=== PATIENT | male | born 1985 | race Caucasian/White ===

== ENCOUNTER 2021-04-23 14:10 | Inpatient (IN) | payer BC ==
[2021-04-23 17:29] VITALS: BMI 25.2
[2021-04-23] MEDS ORDERED: BISMUTH SUBSALICYLATE 524 MG/30 ML PO PRN (18:16)
[2021-04-23] MEDS ORDERED: MAGNESIUM HYDROX 2400MG/30ML ORAL SUSPENSION 30 ML CUP PO PRN (18:16)
[2021-04-23] MEDS ORDERED: NICOTINE POLACRILEX 2 MG GUM BUC PRN (18:16)
[2021-04-23] MEDS ORDERED: methaDONE HCL 10 MG TABLET (FOR DETOX USE ONLY) PO ONE (18:16)
[2021-04-23] MEDS ORDERED: ACETAMINOPHEN 325 MG TABLET (FP) PO PRN ×2 (18:16)
[2021-04-23] MEDS ORDERED: MAGNESIUM CITRATE 300 ML BOTTLE PO PRN (18:16)
[2021-04-23] MEDS ORDERED: LORazepam 1 MG TABLET PO PRN (18:16)
[2021-04-23] MEDS ORDERED: ONDANSETRON *ODT* 4 MG TABLET SL PRN (18:16)
[2021-04-23] MEDS ORDERED: MAG HYDROX/AL HYDROX/SIMETH 30 ML UNIT-DOSE CUP PO PRN (18:16)
[2021-04-23] MEDS ORDERED: MENTHOL/PHENOL 1 EACH UD MM PRN (18:16)
[2021-04-23] MEDS ORDERED: cloNIDine HCL 0.1 MG TABLET PO PRN (18:16)
[2021-04-23] MEDS ORDERED: clonazePAM 0.5 MG ODT TABLETS SL PRN (18:16)
[2021-04-23] MEDS: PRENATAL VITAMINS W/ FOLIC ACID TABLET (FP) PO SCH (19:25)
[2021-04-23] MEDS: NICOTINE 21 MG/24 HOURS TOPICAL PATCH TD SCH (19:25)
[2021-04-23] MEDS: THIAMINE HCL 100 MG TABLET (FP) PO SCH (22:04)
[2021-04-23] MEDS: hydrOXYzine PAMOATE 25 MG CAPSULE (FP) PO SCH (22:05)
[2021-04-23] MEDS: MELATONIN 5 MG TABLETS PO SCH (22:05)
[2021-04-23] MEDS: LORazepam 2 MG TABLET PO SCH (22:08)
[2021-04-23] MEDS: NICOTINE 10 MG CARTRIDGE (INHALER) IH PRN (22:10)
[2021-04-24] MEDS: LORazepam 2 MG TABLET PO SCH ×4 (07:25→22:14)
[2021-04-24] MEDS: hydrOXYzine PAMOATE 25 MG CAPSULE (FP) PO SCH ×5 (07:25→22:14)
[2021-04-24] MEDS ORDERED: methaDONE HCL 10 MG TABLET (FOR DETOX USE ONLY) ONE (09:06)
[2021-04-24] MEDS: PRENATAL VITAMINS W/ FOLIC ACID TABLET (FP) PO SCH (10:04)
[2021-04-24] MEDS: NICOTINE 21 MG/24 HOURS TOPICAL PATCH TD SCH (10:06)
[2021-04-24] MEDS: NICOTINE 10 MG CARTRIDGE (INHALER) IH PRN (10:10)
[2021-04-24 11:06] LABS: HEMATOCRIT 35.6 % (35.4-49); HEMOGLOBIN 12.2 GM/dL (11.7-16.9); MCH 30.2 pg (25.7-33.7); MCHC 34.4 g/dl (32.0-35.9); MEAN PLT VOLUME 8.5 fl (7.5-11.1); PLATELET COUNT 172 10^3/uL (134-434); RBC 4.04 M/mm3 (4.00-5.60); WHITE BLOOD COUNT 3.8 K/mm3 (4.0-10.0)
[2021-04-24 11:23] LABS: ALBUMIN 3.4 g/dl (3.4-5.0)
[2021-04-24 11:24] LABS: CALCIUM 9.4 mg/dL (8.5-10.1)
[2021-04-24 11:25] LABS: BLOOD UREA NITROGEN 11.9 mg/dL (7-18)
[2021-04-24 11:27] LABS: CREATININE 0.7 mg/dL (0.55-1.3)
[2021-04-24 11:28] LABS: BILIRUBIN,TOTAL 0.6 mg/dL (0.2-1)
[2021-04-24 11:31] LABS: TOT PROT 6.6 g/dl (6.4-8.2)
[2021-04-24] MEDS: QUEtiapine FUMARATE 100 MG TABLET (FP) PO SCH (22:14)
[2021-04-24] MEDS: MELATONIN 5 MG TABLETS PO SCH (23:01)
[2021-04-24] MEDS: THIAMINE HCL 100 MG TABLET (FP) PO SCH (23:01)
[2021-04-25] MEDS: hydrOXYzine PAMOATE 25 MG CAPSULE (FP) PO SCH ×5 (05:47→22:06)
[2021-04-25] MEDS: LORazepam 1 MG TABLET PO SCH ×4 (05:48→22:06)
[2021-04-25] MEDS: NICOTINE 10 MG CARTRIDGE (INHALER) IH PRN (05:49)
[2021-04-25] MEDS ORDERED: methaDONE HCL 10 MG TABLET (FOR DETOX USE ONLY) PO ONE (10:00)
[2021-04-25] MEDS: FLUoxetine HCL 20 MG CAPSULE PO SCH (10:33)
[2021-04-25] MEDS: PRENATAL VITAMINS W/ FOLIC ACID TABLET (FP) PO SCH (10:33)
[2021-04-25] MEDS: METHOCARBAMOL 500 MG TABLET PO PRN ×2 (10:33→22:08)
[2021-04-25] MEDS: NICOTINE 21 MG/24 HOURS TOPICAL PATCH TD SCH (10:34)
[2021-04-25] MEDS: IBUPROFEN 400 MG TABLET (FP) PO PRN (18:34)
[2021-04-25] MEDS: MELATONIN 5 MG TABLETS PO SCH (22:06)
[2021-04-25] MEDS: THIAMINE HCL 100 MG TABLET (FP) PO SCH (22:06)
[2021-04-25] MEDS: QUEtiapine FUMARATE 100 MG TABLET (FP) PO SCH (22:06)
[2021-04-26] MEDS ORDERED: LORazepam 0.5 MG TABLET PO PRN
[2021-04-26] MEDS: IBUPROFEN 400 MG TABLET (FP) PO PRN ×2 (05:16→18:17)
[2021-04-26] MEDS: hydrOXYzine PAMOATE 25 MG CAPSULE (FP) PO SCH ×2 (05:16→09:40)
[2021-04-26] MEDS: LORazepam 0.5 MG TABLET PO SCH ×4 (05:16→23:02)
[2021-04-26] MEDS ORDERED: methaDONE HCL 10 MG TABLET (FOR DETOX USE ONLY) ONE (08:59)
[2021-04-26] MEDS: METHOCARBAMOL 500 MG TABLET PO PRN ×2 (09:40→22:23)
[2021-04-26] MEDS: PRENATAL VITAMINS W/ FOLIC ACID TABLET (FP) PO SCH (09:40)
[2021-04-26] MEDS: FLUoxetine HCL 20 MG CAPSULE PO SCH (09:40)
[2021-04-26] MEDS: NICOTINE 21 MG/24 HOURS TOPICAL PATCH TD SCH (09:41)
[2021-04-26] MEDS: NICOTINE 10 MG CARTRIDGE (INHALER) IH PRN (10:32)
[2021-04-26] MEDS ORDERED: P-EPHED 60MG/TRIPROLIDI 2.5MG TABLET PO PRN (10:38)
[2021-04-26] MEDS ORDERED: SODIUM CHLORIDE NASAL SPRAY 44 ML BOTTLE NS PRN (10:38)
[2021-04-26] MEDS: hydrOXYzine PAMOATE 25 MG CAPSULE (FP) PO PRN (18:17)
[2021-04-26] MEDS: MELATONIN 5 MG TABLETS PO SCH (22:23)
[2021-04-26] MEDS: QUEtiapine FUMARATE 100 MG TABLET (FP) PO SCH (22:23)
[2021-04-26] MEDS: THIAMINE HCL 100 MG TABLET (FP) PO SCH (22:24)
[2021-04-27] MEDS: hydrOXYzine PAMOATE 25 MG CAPSULE (FP) PO PRN (03:15)
[2021-04-27] MEDS: IBUPROFEN 400 MG TABLET (FP) PO PRN ×2 (03:16→10:39)
[2021-04-27] MEDS ORDERED: LORazepam 0.5 MG TABLET PO ONE (05:00)
[2021-04-27] MEDS ORDERED: methaDONE HCL 10 MG TABLET (FOR DETOX USE ONLY) PO ONE (10:00)
[2021-04-27] MEDS: FLUoxetine HCL 20 MG CAPSULE PO SCH (10:34)
[2021-04-27] MEDS: PRENATAL VITAMINS W/ FOLIC ACID TABLET (FP) PO SCH (10:34)
[2021-04-27] MEDS: NICOTINE 21 MG/24 HOURS TOPICAL PATCH TD SCH (10:35)
[2021-04-27] MEDS: METHOCARBAMOL 500 MG TABLET PO PRN (10:39)
[2021-04-27 14:25] VITALS: BP 125/79; PULSE 92; TEMP 97.1
== END 2021-04-27 13:50 | disposition home or self-care (01) | DRG 773 ==
LOC: YASAS 14:10 → Y3N 17:54
PROVIDERS: ADMIT Allergy & Immunology; ATTEND Allergy & Immunology
PROC: HZ2ZZZZ Detoxification Services for Substance Abuse Treatment (ICD-10-PCS; principal; 2021-04-23)
DX: F11.23 Opioid dependence with withdrawal (principal); F10.230 Alcohol dependence with withdrawal, uncomplicated; F13.20 Sedative, hypnotic or anxiolytic dependence, uncomplicated; F14.10 Cocaine abuse, uncomplicated; F15.10 Other stimulant abuse, uncomplicated; F12.10 Cannabis abuse, uncomplicated; F17.210 Nicotine dependence, cigarettes, uncomplicated; F19.24 Other psychoactive substance dependence with psychoactive substance-induced mood disorder; F41.9 Anxiety disorder, unspecified; F41.0 Panic disorder [episodic paroxysmal anxiety]; F90.9 Attention-deficit hyperactivity disorder, unspecified type; E53.8 Deficiency of other specified B group vitamins; Z62.810 Personal history of physical and sexual abuse in childhood
CPT/HCPCS: 36415; 80053; 85027; 86780; C9803; J0735; Q0162; U0003; U0005